=== PATIENT | female | born 1970 | race Caucasian/White ===

== ENCOUNTER 2017-06-27 17:18 | Observation (INO) | payer OTHER ==
[~2017-06-27] VITALS: Ht 160 cm; Wt 96.5 kg
[~2017-06-27 17:18] MED LIST: LEVOTHYROXINE112 MCG PO; LEVOTHYROXINE200 MC1 PO; LEXAPRO10 MG PO; LEXAPRO20 MG PO; NAPROSYN500 MG PO; SYNTHROID125 MCG PO; SYNTHROID175 MCG PO; ULTRAM50 MG PO; VALIUM5 MG PO
[2017-06-27 18:11] LABS: HEMATOCRIT 43.3 % (36.0-46.0); HEMOGLOBIN 14.2 G/DL (11.9-15.5); MCH 29.4 PG (29.0-34.0); MCHC 32.8 G/DL (30.0-36.0); MCV 89.6 FL (83-99); PLATELET COUNT 398 K/uL (156-360); RBC DIS.WIDTH-CV 12.6 % (11.8-14.6); RBC DIS.WIDTH-SD 41.7 % (39-53); RED BLOOD COUNT 4.83 M/uL (3.80-5.20); WHITE BLOOD COUNT 15.2 K/uL (4.1-10.2)
[2017-06-27 18:23] LABS: ALBUMIN 4.4 g/dL (3.2-4.8); CHLORIDE 105 mEq/L (99-109); SODIUM 137 mEq/L (136-147)
[2017-06-27 18:25] LABS: GLUCOSE 90 mg/dL (70-99); TOTAL PROTEIN 7.3 g/dL (6.4-8.3)
[2017-06-27 18:27] LABS: TOTAL BILIRUBIN 0.4 mg/dL (0.0-1.0)
[2017-06-27 18:29] LABS: ALKALINE PHOSPHATASE 91 IU/L (3-129); CREATININE 0.8 mg/dL (0.6-1.3); GFR ESTIMATE (CALCULATED) > 59 mL/min/
[2017-06-27 18:30] LABS: UREA NITROGEN (BUN) 8 mg/dL (9-23)
[2017-06-27 18:31] LABS: AST (GOT) 15 IU/L (2-34)
[2017-06-27 18:32] LABS: ALT (GPT) 17 IU/L (3-49); LIPASE 9 U/L (1.0-51.0)
[2017-06-27 18:38] LABS: QUANTITATIVE HCG < 4.0 MIU/ML
[2017-06-27 20:08] LABS: APPEARANCE SL.HAZY ((CLEAR)); BILIRUBIN NEGATIVE; BLOOD NEGATIVE; COLOR YELLOW ((YELLOW)); GLUCOSE (STRIP) NEGATIVE; KETONES 20; LEUKOCYTES MODERATE; NITRITE NEGATIVE; PROTEIN (STRIP) NEGATIVE; UROBILINOGEN 0.2 MG/DL (0.2-1.0)
[2017-06-27 20:21] LABS: BACTERIA RARE /HPF; EPITHELIAL CELLS 3+ /HPF; MUCUS TRACE /LPF; RED BLOOD CELLS 0-5 /HPF (0-5); UCUL ADDED? NO; WHITE BLOOD CELLS 0-5 /HPF (0-5)
[2017-06-27 20:34] LABS: SPECIFIC GRAVITY 1.092 (1.000-1.030)
[2017-06-27] MEDS ORDERED: ASCORBIC ACID500 M3 PO (23:23)
[2017-06-27] MEDS ORDERED: PROAIR HFA8.5 GM IH (23:23)
[2017-06-27] MEDS ORDERED: B-121000 MC2 PO (23:23)
[2017-06-27] MEDS ORDERED: ADVIL200 MG PO (23:24)
[2017-06-27] MEDS ORDERED: ALEVE220 MG PO (23:24)
[2017-06-28 02:11] VITALS: BP 125/74
[2017-06-28 07:00] VITALS: BP 99/61
[2017-06-28 09:47] LABS: HEMATOCRIT 39.8 % (36.0-46.0); HEMOGLOBIN 12.8 G/DL (11.9-15.5); MCH 29.8 PG (29.0-34.0); MCHC 32.2 G/DL (30.0-36.0); MCV 92.6 FL (83-99); PLATELET COUNT 323 K/uL (156-360); RBC DIS.WIDTH-SD 43.9 % (39-53); WHITE BLOOD COUNT 8.7 K/uL (4.1-10.2)
[2017-06-28 10:55] VITALS: BP 89/54
[2017-06-28 11:06] VITALS: BP 90/52
[2017-06-28] MEDS ORDERED: FLAGYL500 MG PO (12:16)
[2017-06-28] MEDS ORDERED: PERCOCET 2.51 TABLET PO (12:17)
[2017-06-28] MEDS ORDERED: ZOFRAN4 MG PO (12:17)
[2017-06-28] MEDS ORDERED: LEVAQUIN750 MG PO (12:17)
== END 2017-06-28 14:47 | disposition home or self-care (01) ==
LOC: EME 17:18 → ENPENDDIS 06-28 → EDOF 06-28 01:07 → ENRESERV 06-28 01:13 → 5WEST 06-28 01:52
PROVIDERS: Emergency Medicine; Nurse Practitioner Family
DX: R19.03 Right lower quadrant abdominal swelling, mass and lump (principal); R10.2 Pelvic and perineal pain; R10.31 Right lower quadrant pain; N39.0 Urinary tract infection, site not specified; Z98.890 Other specified postprocedural states; Z90.710 Acquired absence of both cervix and uterus; Z90.721 Acquired absence of ovaries, unilateral; Z90.79 Acquired absence of other genital organ(s); Z90.49 Acquired absence of other specified parts of digestive tract; E06.3 Autoimmune thyroiditis; E66.9 Obesity, unspecified; K58.9 Irritable bowel syndrome, unspecified; E28.2 Polycystic ovarian syndrome; Z88.0 Allergy status to penicillin; Z88.2 Allergy status to sulfonamides; Z88.1 Allergy status to other antibiotic agents; Z88.8 Allergy status to other drugs, medicaments and biological substances; F17.210 Nicotine dependence, cigarettes, uncomplicated; Z82.49 Family history of ischemic heart disease and other diseases of the circulatory system; Z82.5 Family history of asthma and other chronic lower respiratory diseases
CPT/HCPCS: 74177; 76856; 76857; 80053; 81003; 83690; 84702; 85027; 99281; 99283; G0378; J1956; J2270; J2405; J3010; J7030; S0030